=== PATIENT | female | born 1955 | race Caucasian/White ===

== ENCOUNTER 2023-10-24 08:15 | Emergency (ER) | payer MEDICARE, SELFPAY ==
--- NOTE | ~2023-10-24 | XR_ITS ---
EXAMINATION: 1. RADIOGRAPHS RIGHT KNEE 2. RADIOGRAPHS LEFT KNEE CLINICAL INFORMATION: Pain after injury COMPARISON: None TECHNIQUE: 2 views of each knee were obtained. FINDINGS: Right knee: No fracture or dislocation. No suprapatellar joint effusion. Mild narrowing of the medial and lateral joint spaces. No localized soft tissue swelling. No radiopaque foreign body. Left knee: No fracture or dislocation. No suprapatellar joint effusion. Mild narrowing of the medial lateral joint spaces. No localized soft tissue swelling. No radiopaque foreign body. XR/XR knee LT 2V IMPRESSION: Mild degenerative changes of both knees without fracture or dislocation. Electronically signed by: Hipolito Munguia MD 10/24/2023 10:23 AM EDT
--- NOTE | ~2023-10-24 | XR_ITS ---
EXAMINATION: 1. RADIOGRAPHS RIGHT KNEE 2. RADIOGRAPHS LEFT KNEE CLINICAL INFORMATION: Pain after injury COMPARISON: None TECHNIQUE: 2 views of each knee were obtained. FINDINGS: Right knee: No fracture or dislocation. No suprapatellar joint effusion. Mild narrowing of the medial and lateral joint spaces. No localized soft tissue swelling. No radiopaque foreign body. Left knee: No fracture or dislocation. No suprapatellar joint effusion. Mild narrowing of the medial lateral joint spaces. No localized soft tissue swelling. No radiopaque foreign body. XR/XR knee RT 2V IMPRESSION: Mild degenerative changes of both knees without fracture or dislocation. Electronically signed by: Hipolito Munguia MD 10/24/2023 10:23 AM EDT
--- NOTE | ~2023-10-24 | CT_ITS ---
EXAMINATION: CT CERVICAL SPINE WITHOUT CONTRAST; UNENHANCED CT OF THE HEAD. CLINICAL INFORMATION: Fall. Pain. COMPARISON: None TECHNIQUE: Routine unenhanced CT of the head with multiple coronal and sagittal reformatted images; routine unenhanced CT of the cervical spine with multiple coronal and sagittal reformatted images. This CT examination was performed using dose optimization techniques as appropriate, variously including the following: *Automated exposure control *Adjustment of mA and/or kV according to patient size (this includes techniques or standardized protocols for targeted exams where dose is matched to indication/reason for exam; i.e. extremities or head) *Use of iterative reconstruction technique DLP: 814 mGy-cm FINDINGS: CT head: No intracranial hemorrhage, tumors or acute infarcts identified. Ventricles and sulci are normal in size and configuration. Mild scattered subcortical and periventricular white matter patchy hypodensities are noted and may represent minimal chronic microangiopathic ischemic changes. Moderate segmental calcific atherosclerosis of the cavernous portions of the internal carotid arteries. Orbits and globes are partially included in the imaged field of view demonstrate no acute abnormalities. No extracranial soft tissue inflammatory changes noted. No significant opacification of the visualized paranasal sinuses, mastoid air cells and middle ear cavities. CT cervical spine: Visualized lung apices are clear. No fractures or acute appearing subluxation is noted. Diffuse osteopenia. Moderate multilevel intervertebral disc space narrowing, endplate osteophytosis and facet hypertrophic changes. No prevertebral fluid collections or soft tissue inflammatory changes. Dense bilateral carotid bulb calcific atherosclerotic plaques. Bilateral multifocal palatine tonsilloliths incidentally noted. CT/CT cervical spine wo IV con IMPRESSION: CT HEAD: 1. No acute abnormalities. 2. Mild chronic microangiopathic ischemic changes. CT CERVICAL SPINE: 1. No acute abnormalities. 2. Multilevel chronic spondylosis. 3. Dense bilateral carotid bulb calcific atherosclerotic plaques. Electronically signed by: Edwin Olmos MD 10/24/2023 11:26 AM EDT
[2023-10-24 08:23] VITALS: BP 148/85; PULSE 118; RESP 18; TEMP 36.9; O2SAT 98; BMI 23.5
[2023-10-24 08:34] LABS: MANUAL DIFF FLAG NO
[2023-10-24 08:36] LABS: Basophils Percent Auto 0.6 % (0-2); Eosinophils Absolute Auto 0.1 X10*3/uL (0.0-0.4); Eosinophils Percent Auto 1.1 % (0-4); Hematocrit 39.5 % (37.0-47.0); Hemoglobin 14.1 g/dl (12.0-16.0); Imm Gran Abs Auto 0.02 X10*3/uL (0.00-0.03); Imm Gran Pct Auto 0.3 % (0.0-0.4); Lymphocytes Absolute Auto 2.6 X10*3/uL (1.2-4.9); Lymphocytes Percent Auto 36.2 % (20-40); Mean Corpuscular HGB Conc 35.7 g/dl (31.0-35.0); Mean Corpuscular Hemoglobin 34.1 pg (27.0-33.0); Mean Corpuscular Volume 95.6 fL (80.0-98.0); Mean Platelet Volume 10.5 fL (9.4-12.3); Monocytes Absolute Auto 0.5 X10*3/uL (0.1-1.2); Neutrophils Percent Auto 54.8 % (45-73); Platelet Count 138 X10*3/uL (160-400); Red Blood Count 4.13 X10*6/uL (4.20-5.50); Red Cell Distribution Width 12.7 % (11.0-16.0); White Blood Count 7.3 X10*3/uL (4.8-10.8)
[2023-10-24 08:52] LABS: Alanine Aminotransferase 86 U/L (0-31); Alkaline Phosphatase 60 U/L (39-117); Anion Gap 13 (12-20); Aspartate Amino Transferase 88 U/L (5-31); Bilirubin Total 1.1 mg/dL (0.0-1.0); Blood Urea Nitrogen 14 mg/dL (9-16); Calcium 9.4 mg/dL (8.4-10.2); Carbon Dioxide 23 mmol/L (22-29); Chloride 103 mmol/L (96-108); Creatinine Clr Calc Pharmacy 50.9; Estimated Glomerular Filt Rate > 60; Glucose Random 110 mg/dL (60-115); Potassium 4.2 mmol/L (3.3-5.1); Sodium 135 mmol/L (135-145); Total Protein 7.1 g/dL (6.5-8.0)
--- NOTE | 2023-10-24 09:04 | ED_ITS ---
HPI - General Adult General Chief complaint: Extremity Injury, Lower Stated complaint: fall both knee inj Time Seen by Provider: 10/24/23 09:01 Source: patient Mode of arrival: ambulatory Limitations: no limitations History of Present Illness ED Provider: Nicki Diallo PA-C HPI narrative: Patient is a 68 year old assigned female at with no reported medical history presenting to the emergency department today with bilateral knee pain / wounds. Patient states that she fell and skinned both of her knees. Patient denies any head strike or loss of consciousness. Patient denies any dizziness, lightheadedness, abdominal pain, nausea, vomiting, fever, chills, blurry vision, double vision, loss of vision, chest pain, difficulty breathing, shortness of breath, back pain, night sweats, pain with urination, increased urinary frequency, increased urinary urgency, blood in her urine or stool, syncope or a near syncopal episode, bowel incontinence, bladder incontinence, or any other complaints at this time. Relieving factors: none Exacerbating factors: none Associated symptoms: denies other symptoms Treatments prior to arrival: none Related Data Previous Rx's ?Medication ?Instructions ?Recorded cephalexin 500 mg capsule 500 mg PO Q6H 7 days #28 caps 10/24/23 Allergies Allergy/AdvReac Type Severity Reaction Status Date / Time No Known Allergies Allergy Verified 10/24/23 08:26 Review of Systems 2 Constitutional: Constitutional: Reports no additional constitutional complaints, Denies chills, Denies fever(s) and Denies night sweats Eyes: Eyes: Reports no additional eye complaints, Denies blurry vision, Denies change in vision, Denies diplopia, Denies eye discharge, Denies loss of vision and Denies eye pain ENT: Denies dizziness Cardiovascular: Cardiovascular: Reports no additional cardiovascular complaints, Denies chest pain, Denies lightheadedness, Denies Loss of Consciousness and Denies dyspnea Respiratory: Respiratory: Reports no additional respiratory complaints and Denies dyspnea Gastrointestinal: Gastrointestinal: Reports no additional gastrointestinal complaints, Denies abdominal pain, Denies melena, Denies hematochezia, Denies change in bowel habits and Denies change in stool character Genitourinary: Genitourinary: Denies hematuria, Denies urinary frequency, Denies dysuria, Denies urinary incontinence, Denies urinary hesitancy and Denies urinary urgency Musculoskeletal: Musculoskeletal: Reports no additional musculoskeletal complaints, Denies numbness and Denies tingling Comments: bilateral knee pain Neurologic: Denies dizziness, Denies loss of vision, Denies numbness and Denies tingling Psychiatric: Psychiatric: Reports no additional psychiatric complaints Endocrine: Endocrine: Reports no additional endocrine complaints Hematologic/Lymphatic: Hematologic/Lymphatic: Reports no additional hematologic/lymphatic complaints Allergic/Immunologic: Allergic/Immunologic: Reports no additional allergic/immunologic complaints [facility] Past Medical History Attestation statement: The following information was validated with the patient. Source: old records reviewed and nursing notes reviewed Social History Social History Advance Directives: No Advance Directives Information Provided: Yes Do you have a plan to hurt others: No Plan Physical Exam ED Vital Signs: Vital Signs - 24 hr 10/24/23 08:23 10/24/23 11:34 Temperature 98.4 F 98.4 F Pulse Rate 118 H 118 H Respiratory Rate 18 18 Blood Pressure 148/85 H 148/85 H Pulse Oximetry 98 98 Oxygen Delivery Method Room Air Room Air BMI result Body Mass Index 23.5 Const General: cooperative, no acute distress, alert and awake Nutritional Appearance: well nourished Orientation/consciousness: patient oriented x3 Limitations: no limitations HENMT Head: Yes normal to inspection and Yes atraumatic Ears: hearing grossly normal bilaterally and external ears normal General nose exam: Normal external nose present, no nasal discharge noted and no epistaxis Face and sinus: Yes normal facial exam, No abrasion and No laceration Mouth: Normal oral and palatal mucosa present, no drooling and no muffled voice Eyes General: appearance normal, both eyes and all related structures Periorbital: periorbital findings normal Eyelids: Yes eyelids normal Conjunctivae: conjunctivae normal Pupils: Equal, round and reactive pupils present EOM: EOMs intact bilaterally Neck Neck: Yes normal visual inspection, Yes full ROM and Yes no lymphadenopathy Chest Chest palpation & inspection: normal inspection of the chest Resp Effort & Inspection: normal respiratory effort and able to speak in complete sentences GI Inspection: Yes normal to inspection Neuro General: patient oriented x3 and moves all extremities Cranial nerves: Yes Equal, round and reactive pupils present Cognition (Neuro): normal cognition Extrem Other: bilateral skinned knees General: Yes full ROM and Yes capillary refill normal Psych Appearance: grossly normal Mental Status: mental status grossly normal Affect: normal affect Attitude: cooperative Thought process: Normal thought process present Thought content: Normal thought content present Insight: Good insight present (Psych) Medications Administered Discontinued Medications Generic Name Dose Route Start Last Admin Trade Name Preeti PRN Reason Stop Dose Admin Bacitracin 2 appl 10/24/23 09:29 10/24/23 09:57 Bacitracin Oint 0.9 Gm Packet TOPICAL 10/24/23 09:30 2 appl ONCE ONE Administration Protocol Medical Decision Making Medical Decision Making [facility] Narrative: Patient is a 68 year old assigned female at with no reported medical history presenting to the emergency department today with bilateral knee abrasions. Patient's physical exam showed bilateral knee abrasions. Patient's blood work was unremarkable. Patient's CT head and c-spine showed no acute process. Patient's bilateral knee x-rays showed no acute process. I explained my physical exam findings as well as all test results to the patient. I answered all questions asked by the patient. Patient's remaining skin was laid down was best as possible on bilateral knees. I applied bacitracin and non stick gauze to the areas. I stressed the importance of the patient taking her medication as directed (either prescribed or as the over the counter packaging recommends). I stressed the importance of the patient following up with her primary care provider. I stressed the importance of the patient returning to the emergency department immediately if her symptoms were to worsen or if she were to develop any dizziness, shortness of breath, difficulty breathing, chest pain, blurry vision, loss of vision, nausea, vomiting, abdominal pain, fever, chills, back pain, or any other complaints. Patient verbalized agreement and understanding with this treatment plan and discharge. Differential Diagnosis Differential Diagnoses: The differential diagnosis associated with the presentation includes Bilateral knee abrasion Fall Admission/Observation Consideration of admission/observation: Escalation of care including admission/observation considered Patient would have been admitted to the hospital had her work up had any findings where hospital admission was appropriate and her clinical presentation warranted hospital admission. Lab Data [facility] Lab Attestation statement: I reviewed the patient's lab results. My interpretation of these results are in the [facility] Rationale portion of this note. 10/24/23 08:30 10/24/23 08:30 Labs: Lab Results 10/24/23 Range/Units 08:30 WBC 7.3 (4.8-10.8) X10*3/uL RBC 4.13 L (4.20-5.50) X10*6/uL Hgb 14.1 (12.0-16.0) g/dl Hct 39.5 (37.0-47.0) % MCV 95.6 (80.0-98.0) fL MCH 34.1 H (27.0-33.0) pg MCHC 35.7 H (31.0-35.0) g/dl RDW 12.7 (11.0-16.0) % Plt Count 138 L (160-400) X10*3/uL MPV 10.5 (9.4-12.3) fL Immature Gran % (Auto) 0.3 (0.0-0.4) % Neut % (Auto) 54.8 (45-73) % Lymph % (Auto) 36.2 (20-40) % Rincon % (Auto) 7.0 (2-11) % Eos % (Auto) 1.1 (0-4) % Baso % (Auto) 0.6 (0-2) % Lymph # (Auto) 2.6 (1.2-4.9) X10*3/uL [place] # (Auto) 0.5 (0.1-1.2) X10*3/uL Eos # (Auto) 0.1 (0.0-0.4) X10*3/uL Baso # (Auto) 0.0 (0.0-0.2) X10*3/uL Abs Immat Gran (auto) 0.02 (0.00-0.03) X10*3/uL Absolute Neuts (auto) 4.0 (2.0-8.3) x10*3/uL Absolute Nucleated RBC 0.000 (0.0-0.012) X10*3/uL Nucleated RBC % (auto) 0.0 (0.0-0.2) /100WBC Sodium 135 (135-145) mmol/L Potassium 4.2 (3.3-5.1) mmol/L Chloride 103 (96-108) mmol/L Carbon Dioxide 23 (22-29) mmol/L Anion Gap 13 (12-20) BUN 14 (9-16) mg/dL Creatinine 0.82 (0.5-1.4) mg/dL Estim Creat Clear Calc 50.9 Estimated GFR > 60 Random Glucose 110 (60-115) mg/dL Calcium 9.4 (8.4-10.2) mg/dL Total Bilirubin 1.1 H (0.0-1.0) mg/dL AST 88 H (5-31) U/L ALT 86 H (0-31) U/L Alkaline Phosphatase 60 (39-117) U/L Total Protein 7.1 (6.5-8.0) g/dL Albumin 4.0 (3.5-5.0) g/dL Independent Interpretation I performed an independent interpretation of an: Plain X-Ray and CT Scan Interpretation: My interpretation is in agreement with the radiologist's impression of this imaging study. L EXAMINATION: CT CERVICAL SPINE WITHOUT CONTRAST; UNENHANCED CT OF THE HEAD. CLINICAL INFORMATION: Fall. Pain. COMPARISON: None TECHNIQUE: Routine unenhanced CT of the head with multiple coronal and sagittal reformatted images; routine unenhanced CT of the cervical spine with multiple coronal and sagittal reformatted images. This CT examination was performed using dose optimization techniques as appropriate, variously including the following: *Automated exposure control *Adjustment of mA and/or kV according to patient size (this includes techniques or standardized protocols for targeted exams where dose is matched to indication/reason for exam; i.e. extremities or head) *Use of iterative reconstruction technique DLP: 814 mGy-cm FINDINGS: CT head: No intracranial hemorrhage, tumors or acute infarcts identified. Ventricles and sulci are normal in size and configuration. Mild scattered subcortical and periventricular white matter patchy hypodensities are noted and may represent minimal chronic microangiopathic ischemic changes. Moderate segmental calcific atherosclerosis of the cavernous portions of the internal carotid arteries. Orbits and globes are partially included in the imaged field of view demonstrate no acute abnormalities. No extracranial soft tissue inflammatory changes noted. No significant opacification of the visualized paranasal sinuses, mastoid air cells and middle ear cavities. CT cervical spine: Visualized lung apices are clear. No fractures or acute appearing subluxation is noted. Diffuse osteopenia. Moderate multilevel intervertebral disc space narrowing, endplate osteophytosis and facet hypertrophic changes. No prevertebral fluid collections or soft tissue inflammatory changes. Dense bilateral carotid bulb calcific atherosclerotic plaques. Bilateral multifocal palatine tonsilloliths incidentally noted. CT/CT head/brain wo IV con IMPRESSION: CT HEAD: 1. No acute abnormalities. 2. Mild chronic microangiopathic ischemic changes. CT CERVICAL SPINE: 1. No acute abnormalities. 2. Multilevel chronic spondylosis. 3. Dense bilateral carotid bulb calcific atherosclerotic plaques. Electronically signed by: Edwin Olmos MD 10/24/2023 11:26 AM EDT Dictated By: Edwin Olmos MD Signed By: Electronically signed by Edwin Olmos MD 10/24/23 1126 EXAMINATION: 1. RADIOGRAPHS RIGHT KNEE 2. RADIOGRAPHS LEFT KNEE CLINICAL INFORMATION: Pain after injury COMPARISON: None TECHNIQUE: 2 views of each knee were obtained. FINDINGS: Right knee: No fracture or dislocation. No suprapatellar joint effusion. Mild narrowing of the medial and lateral joint spaces. No localized soft tissue swelling. No radiopaque foreign body. Left knee: No fracture or dislocation. No suprapatellar joint effusion. Mild narrowing of the medial lateral joint spaces. No localized soft tissue swelling. No radiopaque foreign body. XR/XR knee RT 2V IMPRESSION: Mild degenerative changes of both knees without fracture or dislocation. Electronically signed by: Hipolito Munguia MD 10/24/2023 10:23 AM EDT Dictated By: Hipolito Munguia MD Signed By: Electronically signed by Hipolito Munguia MD 10/24/23 1023 Radiology Impression Discussion of test interpretation with radiology: I have reviewed the radiologist's reading. Prescription Management I considered prescription management with: Antibiotic (patient prescribed a prophylactic antibiotic) Discharge Plan Discharge Clinical Impression: Fall, Abrasion Patient Disposition: Home, Self-Care Instructions: Abrasion (ED) Additional Instructions: Follow up with your primary care provider. Return to the emergency department immediately if your symptoms worsen or if you develop any dizziness, shortness of breath, difficulty breathing, chest pain, blurry vision, loss of vision, nausea, vomiting, abdominal pain, fever, chills, back pain, or any other complaints. Prescriptions: New cephalexin 500 mg capsule 500 mg PO Q6H 7 Days Qty: 28 0RF Referrals: [facility] [Provider Group] (Call to establish and follow up with a primary care provider. If you already have a primary care provider, please follow up with them.) [facility] [Provider Group] (Call to establish and follow up with a primary care provider. If you already have a primary care provider, please follow up with them.) [facility] [Provider Group] (Call to establish and follow up with a primary care provider. If you already have a primary care provider, please follow up with them.) Interventions: ED Discharge Assessment Last Done: 10/24/23 11:34 Discharge Date/Time: 10/24/23 11:37 Print Language: Cymro
[2023-10-24] MEDS: Bacitracin Oint 0.9 GM PACKET 2 APPL TOPICAL (09:57)
[2023-10-24 11:34] VITALS: BP 148/85; PULSE 118; RESP 18; TEMP 36.9; O2SAT 98
== END 2023-10-24 11:37 | disposition home or self-care (01) ==
PROVIDERS: Emergency Provider Emergency Medicine
DX: S80.212A Abrasion, left knee, initial encounter (principal); S80.211A Abrasion, right knee, initial encounter; W01.0XXA Fall on same level from slipping, tripping and stumbling without subsequent striking against object, initial encounter; Y93.89 Activity, other specified; Y92.013 Bedroom of single-family (private) house as the place of occurrence of the external cause; Y99.9 Unspecified external cause status
CPT/HCPCS: 36415; 70450; 72125; 73560; 80053; 85025; 99282; 99284